=== PATIENT | female | born 1990 | race Caucasian/White ===

== ENCOUNTER 2025-02-26 11:50 | Emergency (ER) | payer OTHER, SELFPAY ==
[2025-02-26 11:52] VITALS: BP 185/123
[2025-02-26 13:11] VITALS: BP 162/100; BP 163/107; BP 167/109; PULSE 87; PULSE 88
[2025-02-26 13:15] VITALS: BMI 25.6
[2025-02-26 13:37] LABS: Hematocrit 36.6 % (37.0-47.0); Hemoglobin 12.3 g/dL (12.0-16.0); Mean Corp Hgb Conc. 33.6 g/dL (33.0-37.0); Mean Corpuscular Volume 84.7 fL (81.0-99.0); Nucleated Red Blood Cells % 0 %; Platelet Count 251 10^3/uL (130-400); Red Cell Dist. Width 12.8 % (11.5-14.5)
[2025-02-26 13:48] LABS: D-Dimer 0.45 ug/mlFEU (0.00-0.50)
[2025-02-26 13:49] LABS: HCG, Serum Qualitative Screen Negative
[2025-02-26 13:56] LABS: ALT (SGPT) 13 U/L (0-35); AST (SGOT) 18 U/L (14-36); Albumin 4.5 g/dl (3.5-5.0); Alkaline Phosphatase 83 U/L (38-126); Blood Urea Nitrogen 11 mg/dl (7-17); Calcium 9.4 mg/dl (8.4-10.2); Carbon Dioxide 30 mmol/L (22-30); Chloride 101 mmol/L (98-107); Estimated Creatinine Clearance 116 ml/min; Glucose 81 mg/dl (70-99); Magnesium 1.9 mg/dl (1.6-2.3); Potassium 4.4 mmol/L (3.5-5.1); Sodium 136 mmol/L (135-145); Total Protein 7.8 g/dl (6.3-8.2); eGFR > 60.00
[2025-02-26 14:00] VITALS: BP 150/100
--- NOTE | 2025-02-26 14:00 | ED.GENMED ---
History of Present Illness
General
Chief Complaint: Heart Rate Problem
Source: patient
Exam Limitations: none
Time Seen by Provider: 02/26/25 12:45
Nursing documentation reviewed up to this point in time: agreed with
History of Present Illness
History of Present Illness:
Patient with history of chronic pain, currently taking tramadol daily, presents to ED secondary to recurrent chest palpitations, which occurred while she was waiting in the waiting room at her [employer] office for an appointment, associated with
dizziness and bilateral arm numbness tingling sensation. Patient states that her heart rate was greater than 150 bpm at the office, when checked on multiple occasions. Denies chest pain. Denies nausea or vomiting. Denies diaphoresis. Denies leg
pain or swelling. Denies back pain. Of note, patient had similar episode in August of this year, which she was evaluated in ED at different hospital. Afterwards, after seeing her primary care physician, Holter monitoring was done. Unfortunately,
while she was wearing Holter monitor, she did not experience any recurrent palpitations. Since then, patient has had intermittent episodes, usually resolved spontaneously within a short period of time. Patient reports having traveled to [place]
on 4-hour plane ride 2 months ago. There is no family history of heart disease or blood clots. Patient denies smoking. Patient does have history of anxiety, for which she takes Klonopin as needed, but states that her symptoms today were different.
Review of Systems
Review of Systems
Allergies reviewed?: Yes
All Other Systems: ROS reviewed and negative except as documented in HPI and ROS
Constitutional: Reports no symptoms
EENT: Reports no symptoms
Respiratory: Reports no symptoms
Cardiac: Reports palpitations; Denies chest pain
ABD/GI: Reports no symptoms; Denies nausea or vomiting
Musculoskeletal: Reports no symptoms
Skin: Reports no symptoms
Neurological: Reports dizzy and numbness; Denies headache
Phy Exam
Physical Exam
Physical Exam:
Physical Exam
General: no apparent distress, not acutely ill. afebrile
Head: nc/at. eomi
Neck: supple. normal range of motion.
Heart: s1/s2 regular rate and rhythm. no murmur
Lungs: no acute respiratory distress. clear bilaterally
Abdomen: normal bowel sounds. non tender. no distention
Neuro: alert and oriented x 3. no focal neurological deficits
Skin: no rash
Psychiatric: well kept. interactive and cooperative
Extremities: no edema. no calf tenderness.
Course
Orders/Labs/Results
Orders:
Orders
02/26/25 11:53
Electrocardiogram (*1) Urgent
Reason for Study: Tachycardia
EKG- Treatment ONCE
02/26/25 12:57
Orthostatic VS- Treatment ONCE
02/26/25 12:58
Test Result ONCE
02/26/25 13:26
Complete Blood Count/With Diff Urgent
Comprehensive Metabolic Panel Urgent
D-Dimer Urgent
HCG, Serum Qualitative Screen Urgent
Magnesium Urgent
TSH Urgent
02/26/25 14:19
0.9% Sodium Chloride 1000 ml [Nss] 1,000 ml IV BOLUS
02/26/25 14:22
Urinalysis Reflex To Culture Urgent
Date Specimen was Collected: 02/26/25
Time Specimen was Collected: 14:17
Abnormal Lab Results
02/26/25
13:26
Hct 36.6 L %
(37.0-47.0)
MPV 10.5 H fL
(7.4-10.4)
02/26/25 13:26
02/26/25 13:26
Vital Signs
Initial and Last Documented VS:
Initial Vital Signs
Temp Pulse Resp BP Pulse Ox
98.4 F 117 18 185/123 100
02/26/25 11:52 02/26/25 11:52 02/26/25 11:52 02/26/25 11:52 02/26/25 11:52
Last Documented Vital Signs
Temp Pulse Resp BP Pulse Ox
98.4 F 77 14 141/88 98
02/26/25 11:52 02/26/25 15:45 02/26/25 15:45 02/26/25 15:00 02/26/25 15:45
MDM/Problems Addressed
MDM/Problems Addressed:
Patient with an unremarkable workup in ED, including blood work, EKG, including D-dimer. Patient reports improvement in symptoms after IV fluid administration, raising possibility of mild dehydration, contributing to patient's presenting symptoms.
As such, patient will be advised to increase fluid administration upon discharge, along with outpatient consultation with diamond driller, in light of today's symptoms, along with previous episodes. Patient expresses understanding, at time of
discharge.
*Pulse Oximetry
SaO2: 98
Oxygen Mode of Delivery: Room air
Patient hypoxic: no
*EKG
Interpreted by ED Provider?: Yes
EKG Intrepretation Date: 02/26/25
Interpretation: normal
Heart Rate: 99
Rate: normal
Rhythm: sinus
Dawson: normal axis
Interval: normal interval
*Critical Care Note
Total Time (30-74mins, 75-104mins- exclusive of procedures): Not Applicable
ED Attending Note
-
Portions of this chart may have been created with voice recognition software.� Occasional wrong word or��sound alike� substitutions may have occurred due to the inherent limitations of voice recognition software.
Discharge Plan
Departure
Patient Disposition: Home (Routine Discharge)
Date of Disposition: 02/26/25
Time of Disposition: 15:43
Patient with high blood pressure during this ER visit?: Yes
Condition: Fair
Discharge Problem:
Heart palpitations
Instructions: Palpitations (DC)
Referrals:
Michelle Jordan MD [Family Provider]
Activity Restrictions/Additional Instructions:
As discussed, please follow-up with your primary care physician for reevaluation, including referral for an outpatient consultation with diamond driller. Please consider return to ED with worsening symptoms.
Interventions
Interventions:
*Risk Screen - Suicide Last Done: 02/26/25 11:51
*General Assessment Last Done: 02/26/25 11:52
*Neglect/Abuse Screening Last Done: 02/26/25 11:52
*ED COVID-19 Vaccine History Last Done: 02/26/25 13:17
*ED Influenza Vaccine History Last Done: 02/26/25 13:17
[facility] Fall Risk Assessment Tool Last Done: 02/26/25 13:16
*Nursing Disposition Last Done: 02/26/25 16:07
ED- Cardiac Assessment Last Done: 02/26/25 13:17
ED- Pulmonary Assessment Last Done: 02/26/25 13:17
Discharge Date and Time
Discharge Date/Time: 02/26/25 16:07
Print Language: LITHUANIAN
[2025-02-26 14:23] LABS: TSH 2.12 uIU/ml (0.47-4.68)
[2025-02-26 14:29] LABS: Urine Character Clear (Clear)
[2025-02-26] MEDS: NSS 1000 IV (14:50)
[2025-02-26 15:00] VITALS: BP 141/88
== END 2025-02-26 16:07 | disposition home or self-care (01) ==
LOC: EMR 11:50
PROVIDERS: EMERGENCY PHYSICIAN Emergency Medicine; FAMILY PHYSICIAN Family Medicine
DX: R00.2 Palpitations (principal); G89.29 Other chronic pain
CPT/HCPCS: 99284; 96360; 80053; 81003; 83735; 84443; 84703; 85025; 85379; 93005